=== PATIENT | female | born 1985 | race Caucasian/White ===

== ENCOUNTER 2020-12-18 06:08 | Emergency (ER) | payer SELFPAY ==
[2020-12-18] MEDS ORDERED: Orphenadrine 60 MG/2 ML Inj IM ONE (07:15)
[2020-12-18] MEDS ORDERED: Ketorolac 30 MG/ML SDV IM ONE (07:15)
--- NOTE | 2020-12-18 07:27 | EDM.PDOC ---
ED HPI GENERAL MEDICAL PROBLEM - General Chief Complaint: Back Pain or Injury Stated Complaint: PAIN IN MIDDLE OF BACK, TROUBLE BREATHING Time Seen by Provider: 12/18/20 07:00 Source of Information: Reports: Patient, RN, RN Notes Reviewed History Limitations: Reports: No Limitations - History of Present Illness INITIAL COMMENTS - FREE TEXT/NARRATIVE: Jessika is a 35 y/o female who presents to the ED via personal vehicle with complaints of mid back pain. 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 She characterizes the pain as a sharp spasm that is exacerbated by movement. She notes the pain radiates up and down her back during the spasms. She denies loss of motor or sensory function to her extremities, incontinence of bowel/bladder, or saddle paraesthesia. She denies dysuria or hematuria. She has taken one dose of ibuprofen 800mg, applied BioFreeze, and applied a lidocaine patch with [id number] alleviation of pain. Right Middle Back Pain Score (Numeric/FACES): 10 - Related Data Allergies Allergy/AdvReac Type Severity Reaction Status Date / Time No Known Allergies Allergy Verified 12/18/20 06:36 Home Meds: Home Meds . [No Known Home Meds] 12/18/20 [History] Social & Family History - Tobacco Use Tobacco Use Status *Q: Never Tobacco User - Caffeine Use Caffeine Use: Reports: Soda, Tea - Recreational Drug Use Recreational Drug Use: No ED ROS GENERAL - Review of Systems Review Of Systems: Comprehensive ROS is negative, except as noted in HPI. ED EXAM,LOWER BACK PAIN/INJURY - Physical Exam Exam: See Below Exam Limited By: No Limitations General Appearance: Alert, Mild Distress (Right, mid back pain), Obese Eye Exam: Bilateral Eye: EOMI, Normal Inspection, PERRL (3mm) Ears: Normal External Exam, Hearing Grossly Normal Nose: Normal Inspection, Normal Mucosa, No Blood Throat/Mouth: Normal Inspection, Normal Oropharynx, Normal Voice, No Airway Compromise Head: Atraumatic, Normocephalic Neck: Normal Inspection, Supple, Non-Tender, Full Range of Motion Respiratory/Chest: No Respiratory Distress, Lungs Clear, Normal Breath Sounds, No Accessory Muscle Use, Chest Non-Tender Cardiovascular: Normal Peripheral Pulses, Regular Rate, Rhythm, No Edema, No Gallop, No JVD, No Murmur, No Rub GI/Abdominal: Normal Bowel Sounds, Soft, Non-Tender, No Distention, No Abnormal Bruit, No Mass, Pelvis Stable (Female) Exam: Deferred Rectal (Female) Exam: Deferred Back Exam: Decreased Range of Motion, Muscle Spasm (To right mid back), Vertebral Tenderness (Thoracic spine) Extremities: Normal Inspection, Normal Range of Motion, Non-Tender, No Pedal Edema, Normal Capillary Refill Neurological: Alert, Normal Mood/Affect, Normal Dorsiflexion, CN II-XII Intact, Normal Plantar Flexion, Normal Gait, Normal Reflexes, No Motor/Sensory Deficits, Oriented x 3, Straight Leg Raise (L), Straight Leg Raise (R). No: Saddle Anesthesia Psychiatric: Normal Affect, Normal Mood Skin Exam: Warm, Dry, Intact, Normal Color, No Rash. No: Ecchymosis, Erythema, Jaundice, Mottled, Pallor, Petechiae Course - Vital Signs Last Recorded V/S: Last Vital Signs Temp 97.5 F 12/18/20 06:35 Pulse 76 12/18/20 06:35 Resp 18 12/18/20 06:35 BP 112/81 12/18/20 06:35 Pulse Ox 100 12/18/20 06:35 - Orders/Labs/Meds Meds: Medications Discontinued Medications Generic Name Dose Route Start Last Admin Trade Name Jeancarlos PRN Reason Stop Dose Admin Ketorolac Tromethamine 60 mg 12/18/20 07:15 12/18/20 08:18 Ketorolac 30 Mg/Ml Sdv IM 12/18/20 07:16 60 mg ONETIME ONE Administration Orphenadrine Citrate 60 mg 12/18/20 07:15 12/18/20 08:17 Orphenadrine 60 Mg/2 Ml Inj IM 12/18/20 07:16 60 mg ONETIME ONE Administration - Radiology Interpretation Free Text/Narrative:: [facility] Final Radiology Report Call: [phone] assistance Online chat: [email or web address] Name: JESSIKA KWON Age: 35Years F Date: 12/18/2020 SSN: -- : 1985 Study: CR THORACIC SPINE 2V Requesting Physician: Neva Anna Images: 2 Addl Studies: Provided Clinical History: Injured back at work; Pain in left back Contrast: Contrast Medium: Contrast Amount: Contrast Method: CONFIDENTIALITY STATEMENT This report is intended only for use by the referring physician, and only in accordance with law. If you received this in error, call [phone]. Page 1 of 1 PROCEDURE INFORMATION: Exam: XR Thoracic Spine Exam date and time: 12/18/2020 7:50 AM Age: 35 years old Clinical indication: Pain in thoracic spine; Additional info: Injured back at work; Pain in left back TECHNIQUE: Imaging protocol: XR of the thoracic spine. Views: 2 views. COMPARISON: No relevant prior studies available. FINDINGS: Bones/joints: Vertebral body heights are intact. There is a slight levoscoliotic curvature versus positional change. Alignment is otherwise maintained. The pedicles appear intact. No acute fracture is identified. There is multilevel facet arthrosis, disc space narrowing and marginal osteophyte formation. Soft tissues: Grossly unremarkable. IMPRESSION: Degenerative disk disease which could be better evaluated by means of MRI as clinically indicated. Thank you for allowing us to participate in the care of your patient. Dictated and Authenticated by: Sky Turner MD 12/18/2020 8:41 AM Central Time ([place] & [place]) - Re-Assessments/Exams Free Text/Narrative Re-Assessment/Exam: 12/18/20 Xray of thoracic spine obtained. Ketorolac and Orphenadrine IM administered. Patient verbalized marked improvement in pain following medication administration Findings of examination and imaging reviewed with patient. Will treat muscle spasm with orphenadrine PO. Discussed supportive cares for muscle spasm. Patient instructed to follow up with PCP should pain persist as an MRI would be warranted Red flag signs and symptoms which would warrant reevaluation reviewed. Patient verbalized understanding and agreement with the plan of care. Departure - Departure Time of Disposition: 09:25 Disposition: Home, Self-Care 01 Condition: Good Clinical Impression: Muscle spasm Acute right-sided back pain Qualifiers: Back pain location: thoracic back pain Qualified Code(s): M54.6 - Pain in thoracic spine Degenerative disk disease Qualifiers: Spinal region: thoracic Qualified Code(s): M51.34 - Other intervertebral disc degeneration, thoracic region - Discharge Information *PRESCRIPTION DRUG MONITORING PROGRAM REVIEWED*: Not Applicable *COPY OF PRESCRIPTION DRUG MONITORING REPORT IN PATIENT MARY: Not Applicable Instructions: Muscle Cramps and Spasms, Degenerative Disk Disease Forms: ED Department Discharge Additional Instructions: Rx: orphenadrine 1.) You may take ibuprofen (Advil/Motrin) 400mg every six hours, as pain persists. You may also take acetaminophen (Tylenol) 650mg every six hours, as pain persists. You may stagger these medications so you are receiving a dose every three hours. 2.) Alternate cold and heat to affected area. 3.) Continue with BioFreeze and lidocaine patches, as needed. 4.) Follow up with your primary care provider regarding today's visit. Should symptoms persist you may require an MRI. Sepsis Event Note (ED) - Evaluation Sepsis Screening Result: No Definite Risk - Focused Exam Vital Signs: Vital Signs Temp Pulse Resp BP Pulse Ox 12/18/20 06:35 97.5 F 76 18 112/81 100
--- NOTE | 2020-12-18 08:42 | CR ---
PROCEDURE INFORMATION: Exam: XR Thoracic Spine Exam date and time: 12/18/2020 7:50 AM Age: 35 years old Clinical indication: Pain in thoracic spine; Additional info: Injured back at work; Pain in left back TECHNIQUE: Imaging protocol: XR of the thoracic spine. Views: 2 views. COMPARISON: No relevant prior studies available. FINDINGS: Bones/joints: Vertebral body heights are intact. There is a slight levoscoliotic curvature versus positional change. Alignment is otherwise maintained. The pedicles appear intact. No acute fracture is identified. There is multilevel facet arthrosis, disc space narrowing and marginal osteophyte formation. Soft tissues: Grossly unremarkable. IMPRESSION: Degenerative disk disease which could be better evaluated by means of MRI as clinically indicated.
== END 2020-12-18 09:40 | disposition home or self-care (01) ==
LOC: DL.ED 06:08
DX: M51.34 Other intervertebral disc degeneration, thoracic region (principal); M62.830 Muscle spasm of back; E66.9 Obesity, unspecified; Z68.36 Body mass index [BMI] 36.0-36.9, adult
CPT/HCPCS: 72070; 96372; 99283; 99283-25; J1885; J2360

== ENCOUNTER 2020-12-24 21:38 | Emergency (ER) | payer MEDICAID, OTHER ==
[2020-12-24] MEDS ORDERED: Orphenadrine 60 MG/2 ML Inj IM ONE (22:04)
--- NOTE | 2020-12-24 22:15 | EDM.PDOC ---
ED HPI GENERAL MEDICAL PROBLEM - General Chief Complaint: Back Pain or Injury Stated Complaint: SEVERE BACK PAIN / RETURNING Time Seen by Provider: 12/24/20 22:00 Source of Information: Reports: Patient, RN History Limitations: Reports: No Limitations - History of Present Illness INITIAL COMMENTS - FREE TEXT/NARRATIVE: 35-year-old patient who presents to the ER for upper back pain evaluation x 6 days. Reports she was seen in the ER 6 days ago and diagnosed with degenerative disc disease in her thoracic spine. 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 She was treated in the ER with Toradol and Norflex and she returned back to work. Patient reports she has been medicating with Tylenol and ibuprofen with little relief. She has been working 15 to 16-hour shifts daily. She states the pain today is excruciating and she cannot rest. She reports pain radiates to her upper and lower back. She denies any recent injuries. She denies saddle anesthesia. She denies any radiation down her lower extremities. She reports that she will see her PCP at the [facility] in December when she returns home ([place]) in 2 weeks. She had taken ibuprofen 800 mg 1 hour before ER visit. Treatments WOOL HANKER: Reports: Acetaminophen, Other (see below) Other Treatments WOOL HANKER: Ibuprofen and Lidocaine Middle Back Pain Score (Numeric/FACES): 10 - Related Data Allergies Allergy/AdvReac Type Severity Reaction Status Date / Time No Known Allergies Allergy Verified 12/24/20 21:53 Home Meds: Home Meds . [No Known Home Meds] 12/18/20 [History] Social & Family History - Tobacco Use Tobacco Use Status *Q: Never Tobacco User Second Hand Smoke Exposure: No - Caffeine Use Caffeine Use: Reports: Soda - Recreational Drug Use Recreational Drug Use: No ED ROS GENERAL - Review of Systems Review Of Systems: Comprehensive ROS is negative, except as noted in HPI. ED EXAM,LOWER BACK PAIN/INJURY - Physical Exam Exam: See Below Exam Limited By: No Limitations General Appearance: Alert, Moderate Distress, Obese Neck: Normal Inspection, Supple, Non-Tender, Full Range of Motion Respiratory/Chest: No Respiratory Distress, Lungs Clear, Normal Breath Sounds, No Accessory Muscle Use, Chest Non-Tender Cardiovascular: Normal Peripheral Pulses, Regular Rate, Rhythm, No Edema, No Gallop, No JVD, No Murmur, No Rub GI/Abdominal: Normal Bowel Sounds, Soft, Non-Tender, No Organomegaly, No Distention, No Abnormal Bruit, No Mass Back Exam: Decreased Range of Motion, Muscle Spasm (With palpation of the mid thoracic area on the right side. Patient reports spasms and rates her pain as an 8 on a 10 with 10 being the worst pain.) Extremities: Normal Inspection, Normal Range of Motion, Non-Tender, No Pedal Edema, Normal Capillary Refill Neurological: Alert, Normal Gait, Oriented x 3 Psychiatric: Anxious Skin Exam: Warm, Intact Course - Vital Signs Last Recorded V/S: Last Vital Signs Temp 97.5 F 12/24/20 21:47 Pulse 91 12/24/20 21:47 Resp 18 12/24/20 21:47 BP 148/98 H 12/24/20 21:47 Pulse Ox 99 12/24/20 21:47 - Orders/Labs/Meds Meds: Medications Discontinued Medications Generic Name Dose Route Start Last Admin Trade Name Freq PRN Reason Stop Dose Admin Orphenadrine Citrate 60 mg 12/24/20 22:04 Orphenadrine 60 Mg/2 Ml Inj IM 12/24/20 22:05 ONETIME ONE - Re-Assessments/Exams Free Text/Narrative Re-Assessment/Exam: Reviewed exam findings with patient. Norflex 60 mg IM administered. Encouraged patient to apply ice and heat intermittently every 20 minutes/hour while awake. Strongly recommended rest and follow up with PCP. Continue ibuprofen every 6 hours as needed with meals and Tylenol prn. Patient verbalized understanding. Departure - Departure Time of Disposition: 22:22 Disposition: Home, Self-Care 01 Condition: Good Clinical Impression: Muscle spasm Degenerative disk disease Qualifiers: Spinal region: thoracic Qualified Code(s): M51.34 - Other intervertebral disc degeneration, thoracic region Acute right-sided back pain Qualifiers: Back pain location: thoracic back pain Qualified Code(s): M54.6 - Pain in thoracic spine - Discharge Information Instructions: Degenerative Disk Disease Additional Instructions: Encouraged patient to apply ice and heat intermittently every 20 minutes/hour while awake. Strongly recommended rest and follow up with PCP. Continue ibuprofen every 6 hours as needed with meals and Tylenol prn. Patient verbalized understanding. Sepsis Event Note (ED) - Evaluation Sepsis Screening Result: No Definite Risk - Focused Exam Vital Signs: Vital Signs Temp Pulse Resp BP Pulse Ox 12/24/20 21:47 97.5 F 91 18 148/98 H 99
== END 2020-12-24 22:35 | disposition home or self-care (01) ==
LOC: DL.ED 21:38
DX: M51.34 Other intervertebral disc degeneration, thoracic region (principal); M62.838 Other muscle spasm; X50.0XXA Overexertion from strenuous movement or load, initial encounter; Y92.129 Unspecified place in nursing home as the place of occurrence of the external cause
CPT/HCPCS: 96372; 99283; J2360